=== PATIENT | female | born 1990 | race African-American/Black ===

== ENCOUNTER 2020-07-30 01:03 | Emergency (ER) | payer SELFPAY ==
[~2020-07-30] VITALS: Ht 172.7 cm; Wt 81.0 kg
[2020-07-30 01:08] VITALS: BP 105/78
== END 2020-07-30 02:10 | disposition home or self-care (01) ==
LOC: EDBD 01:03 → ER 01:23
DX: T51.0X1A Toxic effect of ethanol, accidental (unintentional), initial encounter (principal); G92 Toxic encephalopathy; Y92.59 Other trade areas as the place of occurrence of the external cause
CPT/HCPCS: 93005; 99283